=== PATIENT | female | born 1970 | race Caucasian/White ===

== ENCOUNTER 2017-03-24 03:52 | Emergency (ER) | payer OTHER ==
[~2017-03-24] VITALS: Ht 160 cm; Wt 61.2 kg
[2017-03-24 03:58] VITALS: BP_SYST 158
[2017-03-24 04:15] VITALS: BP_SYST 152
== END 2017-03-24 04:15 ==
LOC: SED 03:52
DX: Z02.83 Encounter for blood-alcohol and blood-drug test (principal)